=== PATIENT | male | born 1995 | race Caucasian/White ===

== ENCOUNTER 2016-10-26 14:53 | Emergency (ER) | payer OTHER ==
[~2016-10-26] VITALS: Ht 180.3 cm; Wt 82.0 kg
[~2016-10-26 14:53] MED LIST: OXYC1TAB3 PO
[2016-10-26 14:58] VITALS: TEMP 36.6; Ht 180.3 cm; Wt 82.0 kg
[2016-10-26] MEDS ORDERED: IBUPROFEN 600 MG TAB PO STA (15:14)
[2016-10-26] MEDS ORDERED: ACETAMINOPHEN 500 MG TAB PO STA (15:14)
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
[2016-10-26] MEDS ORDERED: AMOX875T PO (16:30)
[2016-10-26 16:44] VITALS: BP 148/91; PULSE 93; O2SAT 98
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
== END 2016-10-26 16:47 | disposition home or self-care (01) ==
LOC: C.EDB 14:55 → C.EDD 16:47
DX: S09.93XA Unspecified injury of face, initial encounter (principal); J32.9 Chronic sinusitis, unspecified; Y04.0XXA Assault by unarmed brawl or fight, initial encounter